=== PATIENT | male | born 1960 | race Caucasian/White ===

== ENCOUNTER 2021-11-12 14:08 | Emergency (ER) | payer SELFPAY ==
[~2021-11-12] VITALS: Ht 167.6 cm; Wt 63.5 kg
[2021-11-12 15:19] LABS: BASOPHILS % (AUTO) 0.6 % (0.0-2.0); EOSINOPHILS % (AUTO) 1.3 % (0.0-6.0); HEMATOCRIT 37 % (39-51); HEMOGLOBIN 12.6 g/dL (13.5-17.5); LYMPHOCYTES # (AUTO) 2.6 K/uL (0.8-4.8); LYMPHOCYTES % (AUTO) 40.6 % (20.0-44.0); MEAN CORPUSCULAR HGB CONC 34 g/dl (31.0-36.0); MEAN CORPUSCULAR VOLUME 82 fL (80-96); MONOCYTES # (AUTO) 0.7 K/uL (0.1-1.30); MONOCYTES % (AUTO) 11.2 % (2.0-12.0); NEUTROPHILS % (AUTO) 46.3 % (43.0-81.0); PLATELET COUNT (AUTO) 209 K/uL (150-450); RED BLOOD CELL COUNT(AUTO) 4.47 MIL/uL (4.5-6.0); WHITE BLOOD COUNT (AUTO) 6.5 K/uL (4.3-11.0)
[2021-11-12 16:22] LABS: CALCIUM, SERUM 8.8 mg/dL (8.5-10.1); CARBON DIOXIDE 23 mmol/L (21-32); CHLORIDE 96 mmol/L (98-107); CREATININE 0.7 mg/dL (0.6-1.3); GLUCOSE 82 mg/dL (74-106); POTASSIUM 3.1 mmol/L (3.5-5.1); SODIUM SERUM 130 mmol/L (136-145); UREA NITROGEN, BLOOD 17 mg/dL (7-18)
[2021-11-12 16:34] LABS: ALANINE AMINOTRANSFERASE 22 U/L (12-78); ALBUMIN 3.5 g/dL (3.4-5.0); ALCOHOL, BLOOD 108 mg/dL (0-0); ALKALINE PHOSPHATASE 110 U/L (46-116); ASPARTATE AMINOTRANSFERASE 31 U/L (15-37); BILIRUBIN,DIRECT 0.1 mg/dL (0.0-0.2); BILIRUBIN,TOTAL 0.5 mg/dL (0.2-1.0)
[2021-11-12 16:35] LABS: ACETAMINOPHEN < 0 ug/ml (10-30)
[2021-11-12 21:45] VITALS: BP 107/63
--- NOTE | 2021-11-12 21:46 | NUR ---
Patient discharged to home in stable condition. Written and verbal after care instructions given. Patient verbalizes understanding of instruction.
== END 2021-11-12 21:46 | disposition home or self-care (01) ==
LOC: ER 14:10
DX: F10.129 Alcohol abuse with intoxication, unspecified (principal); R47.81 Slurred speech; Z59.00 Homelessness unspecified; Y90.9 Presence of alcohol in blood, level not specified
CPT/HCPCS: 36415; 70450-TC; 80048-TC; 80076-TC; 85025-TC; G0480

== ENCOUNTER 2022-05-03 19:36 | Emergency (ER) | payer SELFPAY ==
[~2022-05-03] VITALS: Ht 167.6 cm; Wt 63.5 kg
[2022-05-03 20:16] VITALS: BP 133/72
== END 2022-05-03 20:39 | disposition home or self-care (01) ==
LOC: ER 19:43
DX: F10.129 Alcohol abuse with intoxication, unspecified (principal); Z59.00 Homelessness unspecified; Y90.9 Presence of alcohol in blood, level not specified

== ENCOUNTER 2022-09-24 | Emergency (ER) | payer MEDICAID, OTHER ==
[~2022-09-24] VITALS: Ht 180.3 cm; Wt 79.4 kg
[2022-09-24 01:00] VITALS: BP 141/90
--- NOTE | 2022-09-24 01:00 | NUR ---
PATIENT BIB FROM STREET C/O +SI WANTS TO HURT SELF NO PLAN, -HI, WANTS VOL PSYCH ADMIT. PATIENT IS A/O X 3, RR EVEN AND UNLABORED NO SOB NOTED, VSS, PT IS AFEBRILE. PATIENT BELONGING TAKEN AND PLACED IN LOCKER. PATIENT PLACED IN HOSPITAL GOWN. WILL CONTINUE TO MONITOR.
--- NOTE | 2022-09-24 01:10 | NUR ---
STILE RIPSAW OPERATOR AT PT'S BEDSIDE
[2022-09-24 01:28] LABS: BASOPHILS % (AUTO) 0.5 % (0.0-2.0); HEMATOCRIT 37 % (39-51); HEMOGLOBIN 12.1 g/dL (13.5-17.5); LYMPHOCYTES # (AUTO) 2.7 K/uL (0.8-4.8); LYMPHOCYTES % (AUTO) 54.8 % (20.0-44.0); MEAN CORPUSCULAR HGB CONC 32 g/dl (31.0-36.0); MEAN CORPUSCULAR VOLUME 84 fL (80-96); MONOCYTES # (AUTO) 0.5 K/uL (0.1-1.30); MONOCYTES % (AUTO) 10.4 % (2.0-12.0); NEUTROPHILS # (AUTO) 1.6 K/uL (1.8-8.9); NEUTROPHILS % (AUTO) 31.3 % (43.0-81.0); RED BLOOD CELL COUNT(AUTO) 4.42 MIL/uL (4.5-6.0)
[2022-09-24 01:33] LABS: BILIRUBIN,URINE NEGATIVE (NEGATIVE); COLOR,URINE OTHER (YELLOW); LEUKOCYTE ESTERASE ,URINE NEGATIVE (NEGATIVE); NITRITE, URINE NEGATIVE (NEGATIVE); PROTEIN,URINE NEGATIVE (NEGATIVE); UGLUCOSE NEGATIVE (NEGATIVE); UROBILINOGEN,URINE 0.2 EU/dL (0.2)
[2022-09-24 01:37] LABS: CREATININE 0.8 mg/dL (0.6-1.3); POTASSIUM 4.4 mmol/L (3.5-5.1)
[2022-09-24 01:41] LABS: PLATELET COUNT (AUTO) 37 K/uL (150-450)
--- NOTE | 2022-09-24 01:42 | NUR ---
CRITICAL LAB PLT - 37
[2022-09-24 01:43] LABS: BILIRUBIN,DIRECT 0.1 mg/dL (0.0-0.2); BILIRUBIN,TOTAL 0.4 mg/dL (0.2-1.0); TOTAL PROTEIN, SERUM 9.3 g/dL (6.4-8.2)
[2022-09-24 01:59] LABS: BACTERIA,URINE Rare /HPF (None Seen); RBC,URINE 0-2 /HPF (0-2); SQUAMOUS EPITHELIAL CELL,UR Rare /HPF (None Seen); WBC,URINE 0-2 /HPF (0-3)
--- NOTE | 2022-09-24 09:30 | NUR ---
FAXED CLINICALS TO [facility].
[2022-09-24 11:15] LABS: BAND % (MANUAL) 1 % (0.0-5.0); BASOPHILS % (MANUAL) 0 % (0.0-2.0); EOSINOPHILS % (MANUAL) 6 % (0-4); LYMPHOCYTES % (MANUAL) 55 % (16-48); MONOCYTES % (MANUAL) 9 % (0-11.0); NEUTROPHILS % (MANUAL) 29 (42-76)
--- NOTE | 2022-09-24 11:54 | NUR ---
REFAXED CLINICALS TO [facility].
--- NOTE | 2022-09-24 13:19 | NUR ---
PT ACCEPTED TO [facility] UNDER DR. MCGOWAN PLEASE CALL [phone] FOR REPORT. WILL CALL BACK WITH PUMP SERVICER SUPERVISOR TIME OF HIGHWAY PATROL OFFICER.
--- NOTE | 2022-09-24 13:29 | NUR ---
SLAB GRINDER TIME: [id number]
--- NOTE | 2022-09-24 18:14 | NUR ---
PER [facility], UPDATED ETA IS NOT KNOWN MITER GRINDER OPERATOR IS CURRENTLY PICKING UP/DROPPING OFF PATIENTS ALL OVER
--- NOTE | 2022-09-24 18:40 | NUR ---
PICKED-UP BY [facility] PROCUREMENT OFFICER/TRANSPORT
== END 2022-09-24 18:45 ==
LOC: ER 00:02
DX: R45.851 Suicidal ideations (principal); F10.129 Alcohol abuse with intoxication, unspecified; Y90.8 Blood alcohol level of 240 mg/100 ml or more; Z20.822 Contact with and (suspected) exposure to COVID-19; Z59.00 Homelessness unspecified
CPT/HCPCS: 99285; 85025; 80048; 80076; 85007; 81001; 36415; 87426; 80143; 80320 ×2; 80307; C9803; G0480

== ENCOUNTER 2022-09-27 20:48 | Emergency (ER) | payer MEDICAID ==
[~2022-09-27] VITALS: Ht 180.3 cm; Wt 79.4 kg
--- NOTE | 2022-09-27 21:03 | NUR ---
[id number] FROM [place] C/O EtoH - KO. PT A/OX3. TOLERATING R/A WELL WITH NO RESP DISTRESS. PT GOWN, BELONGINGS COLLECTED PLACED IN LOCKER, WANDED BY SECURITY. SAFETY MEASURES IN PLACE.
[2022-09-27 23:30] LABS: ALBUMIN 3.1 g/dL (3.4-5.0); BASOPHILS # (AUTO) 0.1 K/uL (0.0-0.2); BASOPHILS % (AUTO) 1.2 % (0.0-2.0); BILIRUBIN,DIRECT 0.1 mg/dL (0.0-0.2); BILIRUBIN,TOTAL 0.2 mg/dL (0.2-1.0); CALCIUM, SERUM 8.2 mg/dL (8.5-10.1); CREATININE 0.8 mg/dL (0.6-1.3); EOSINOPHILS % (AUTO) 6.4 % (0.0-6.0); HEMATOCRIT 39 % (39-51); HEMOGLOBIN 12.3 g/dL (13.5-17.5); LYMPHOCYTES # (AUTO) 1.9 K/uL (0.8-4.8); LYMPHOCYTES % (AUTO) 38.3 % (20.0-44.0); MEAN CORPUSCULAR HGB CONC 32 g/dl (31.0-36.0); MEAN CORPUSCULAR VOLUME 84 fL (80-96); MONOCYTES # (AUTO) 0.4 K/uL (0.1-1.30); MONOCYTES % (AUTO) 8.6 % (2.0-12.0); NEUTROPHILS # (AUTO) 2.3 K/uL (1.8-8.9); NEUTROPHILS % (AUTO) 45.5 % (43.0-81.0); PLATELET COUNT (AUTO) 194 K/uL (150-450); POTASSIUM 3.8 mmol/L (3.5-5.1); TOTAL PROTEIN, SERUM 9.3 g/dL (6.4-8.2); WHITE BLOOD COUNT (AUTO) 5.1 K/uL (4.3-11.0)
--- NOTE | 2022-09-28 01:16 | NUR ---
[id number] FROM [place] C/O EtoH - KO. PT A/OX3. TOLERATING R/A WELL WITH NO RESP DISTRESS. PT GOWN, BELONGINGS COLLECTED PLACED IN LOCKER, WANDED BY SECURITY. SAFETY MEASURES IN PLACE.
--- NOTE | 2022-09-28 01:16 | NUR ---
Note pepe in EDM - 09/28/22 at [address]O [id number] C/O EtoH - KO. PT A/OX3. TOLERATING R/A WELL WITH NO RESP DISTRESS. PT GOWN, BELONGINGS COLLECTED PLACED IN LOCKER, WANDED BY SECURITY. SAFETY MEASURES IN PLACE.
[2022-09-28 01:56] LABS: BILIRUBIN,URINE NEGATIVE (NEGATIVE); COLOR,URINE YELLOW (YELLOW); LEUKOCYTE ESTERASE ,URINE NEGATIVE (NEGATIVE); NITRITE, URINE NEGATIVE (NEGATIVE); PROTEIN,URINE NEGATIVE (NEGATIVE); UGLUCOSE NEGATIVE (NEGATIVE); UROBILINOGEN,URINE 0.2 EU/dL (0.2)
--- NOTE | 2022-09-28 03:41 | NUR ---
faxed clinicals to [facility]
--- NOTE | 2022-09-28 08:39 | NUR ---
PT ACCEPTED TO [facility] UNDER DR. SLOAN PLEASE CALL [phone] UNIT ONE. WILL CALL WITH ETA OF MELTER OPERATOR PER EMELYN.
--- NOTE | 2022-09-28 08:48 | NUR ---
ETA 1030 FOR TRANSPORT PER INTAKE.
[2022-09-28 09:51] LABS: BAND % (MANUAL) 4 % (0.0-5.0); LYMPHOCYTES % (MANUAL) 37 % (16-48); NEUTROPHILS % (MANUAL) 43 (42-76)
[2022-09-28 09:52] LABS: EOSINOPHILS % (MANUAL) 7 % (0-4); MONOCYTES % (MANUAL) 9 % (0-11.0)
[2022-09-28 10:40] VITALS: BP 126/73
--- NOTE | 2022-09-28 10:40 | NUR ---
Patient discharged to [facility] in stable condition accompanied by transporter. Written and verbal after care instructions given. Patient verbalizes understanding of instruction.
== END 2022-09-28 10:58 ==
LOC: ER 20:50
DX: R45.851 Suicidal ideations (principal); Z59.00 Homelessness unspecified; F10.10 Alcohol abuse, uncomplicated
CPT/HCPCS: 99285; 85025; 80048; 80076; 85007; 36415; 80143; 80320; 80307; 81003; 87426; C9803; G0480